=== PATIENT | male | born 1970 | race African-American/Black ===

== ENCOUNTER 2017-01-02 01:21 | Emergency (ER) | payer SELFPAY ==
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
== END 2017-01-02 01:29 | disposition home or self-care (01) ==
LOC: CED 01:21
DX: S00.93XA Contusion of unspecified part of head, initial encounter (principal); S80.01XA Contusion of right knee, initial encounter; S20.219A Contusion of unspecified front wall of thorax, initial encounter; V49.40XA Driver injured in collision with unspecified motor vehicles in traffic accident, initial encounter; Y92.410 Unspecified street and highway as the place of occurrence of the external cause
CPT/HCPCS: 70450; 73030; 73560; 99284